=== PATIENT | female | born 1940 | race Caucasian/White ===

== ENCOUNTER 2017-07-01 04:17 | Emergency (ER) | payer MEDICARE ==
[~2017-07-01] VITALS: Ht 162.6 cm; Wt 90.9 kg
[~2017-07-01 04:17] MED LIST: /HCTZ25TA PO; ALEV220T26 PO; AMPI25CA PO; ASPI81TA85 PO; CARA1TAB2 PO; CITA40TA PO; FERR324T2 PO; METO50TA2 PO; PRIL40CA PO; PRIN10TA PO; SIMV10TA2 PO; ZANT150T PO
[2017-07-01] MEDS ORDERED: TRAM50TA2 PO (04:33)
[2017-07-01] MEDS ORDERED: SIMV20TA2 PO (04:33)
[2017-07-01] MEDS ORDERED: NS 1,000 ML IV ONE ×2 (05:15→08:00)
[2017-07-01] MEDS ORDERED: ONDANSETRON 4MG/2ML VIAL (J2405) IV ONE (05:15)
[2017-07-01 05:31] LABS: BASO % 0.4 % (0.0-1.0); EOS # 0.2 K/mm3 (0.0-0.50); EOS % 1.6 % (0.0-3.0); LARGE UNSTAINED CELL # 0.3 K/mm3 (0.0-0.4); LARGE UNSTAINED CELL % 2.2 % (0.0-4.0); LYMPH # 1.8 K/mm3 (1.5-4.5); LYMPH % 13.4 % (24.0-44.0); MEAN CORPUSCULAR HEMOGLOBIN 34.9 pg (27.0-33.0); MEAN CORPUSCULAR HGB CONC 33.8 g/dl (32.0-36.5); MEAN CORPUSCULAR VOLUME 103.3 fl (80.0-96.0); MONO # 0.7 K/mm3 (0.0-0.8); MONO % 6.5 % (0.0-5.0); NEUTROPHILS # 8.7 K/mm3 (1.8-7.7); NEUTROPHILS % 75.9 % (36.0-66.0); PLATELET COUNT, AUTOMATED 317 k/mm3 (150-450); RED CELL DISTRIBUTION WIDTH 12.3 % (11.5-14.5); WHITE BLOOD COUNT 11.4 K/mm3 (4.0-10.0)
[2017-07-01 05:55] LABS: ALBUMIN 3.8 GM/DL (3.2-5.2); ALBUMIN/GLOBULIN RATIO 1.06 (1.00-1.93); BILIRUBIN,DIRECT 0.1 MG/DL (0.0-0.2); BILIRUBIN,TOTAL 0.3 MG/DL (0.2-1.0); CALCIUM LEVEL 8.7 MG/DL (8.8-10.2); CREATININE FOR GFR 1.53 MG/DL (0.55-1.02); GLOMERULAR FILTRATION RATE 34.9 (>39); POTASSIUM SERUM 3.8 MEQ/L (3.5-5.1); TOTAL PROTEIN 7.4 GM/DL (6.4-8.2)
[2017-07-01] MEDS ORDERED: ISOVUE-370 76% 100ML VIAL (Q9967) As Ordered ONE (06:10)
--- NOTE | 2017-07-01 07:30 | REPUSA ---
CLINICAL HISTORY: Abdominal pain. TECHNIQUE: Multiple axial, sagittal and coronal CT images were obtained through the abdomen and pelvi s after administration of intravenous contrast material. COMMENTS: Comparison to the prior exam performed on 02/09/2013. Scattered simple hepatic cysts. Fluid filled bowels. The remaining liver is of uniform attenuation without mass or defect. There is no intra or extrahepat ic biliary ductal dilatation. The spleen is normal. The gallbladder is within normal limits. The panc reas is of normal contour and attenuation characteristics. There is no evidence of adrenal mass. Both kidneys demonstrate prompt and equal nephrograms. The kidneys are normal in size, shape and conf iguration. There is no evidence of renal or ureteral mass. No renal or ureteral calculi are identifie d. There is no hydroureter or hydronephrosis. No evidence for appendicitis. No evidence for small or large bowel obstruction. There is no evidence of abdominal ascites or lymphadenopathy. There is no evidence of intrinsic or extrinsic bladder mass. There is no pelvic ascites or lymphadeno meka. Images of the lung bases show no evidence of pleural or parenchymal mass. There are no pleural effusi ons. The bony structures are free of lytic or blastic lesions. Multilevel degenerative changes are seen in volving the thoracolumbar spine. Scattered calcifications are seen involving the aorta and major bran ches compatible with atherosclerosis. IMPRESSION: Scattered benign simple hepatic cysts. Bilateral simple renal cysts. Fluid filled bowel suggestive of enteritis. This finding was not present on prior exam. No bowel perforation or pneumatosis intestinalis. Thank you for your kind referral of this patient.
[2017-07-01] MEDS ORDERED: TINI500T PO (10:44)
[2017-07-01 11:00] VITALS: BP 148/68
== END 2017-07-01 11:03 | disposition home or self-care (01) ==
LOC: M ED 04:17
DX: A07.1 Giardiasis [lambliasis] (principal)
CPT/HCPCS: 36415; 74177; 80048; 80076; 83690; 85025; 87040; 87507; 93041; 96361; 96374; 99285; J2405; Q9967

== ENCOUNTER 2017-07-02 07:08 | Emergency (ER) | payer MEDICARE ==
[~2017-07-02] VITALS: Ht 162.6 cm; Wt 90.9 kg
[~2017-07-02 07:08] MED LIST changes: +SIMV20TA2 PO; +TINI500T PO; +TRAM50TA2 PO
[2017-07-02 08:02] LABS: CALCIUM LEVEL 8.8 MG/DL (8.8-10.2); CREATININE FOR GFR 1.03 MG/DL (0.55-1.02); GLOMERULAR FILTRATION RATE 55.2 (>39); POTASSIUM SERUM 3.9 MEQ/L (3.5-5.1)
[2017-07-02 09:09] VITALS: BP 139/80
== END 2017-07-02 09:11 | disposition home or self-care (01) ==
LOC: M ED 07:08
DX: A07.1 Giardiasis [lambliasis] (principal)